=== PATIENT | female | born 1980 | race Caucasian/White ===

== ENCOUNTER 2022-09-20 23:36 | Emergency (ER) | payer SELFPAY ==
[2022-09-21 00:54] LABS: ESTIMATED GFR 95 mL/min (>60)
== END 2022-09-21 02:42 | disposition home or self-care (01) ==
LOC: JD.ED 23:36
DX: R47.81 Slurred speech (principal); R27.0 Ataxia, unspecified; F19.90 Other psychoactive substance use, unspecified, uncomplicated; Z88.8 Allergy status to other drugs, medicaments and biological substances
CPT/HCPCS: 36415; 80053; 80306; 80307; 81025; 85025; 99283; 99284